=== PATIENT | female | born 1965 | race Caucasian/White ===

== ENCOUNTER 2022-05-19 08:41 | Day surgery (SDC) | payer OTHER, SELFPAY ==
[2022-05-19 09:25] VITALS: BP 155/80; PULSE 77; RESP 16; TEMP 36.6; O2SAT 96
[2022-05-19] MEDS: Tropicam./Phenyleph. (1/2.5%) 5 ML BTL OD ×3 (09:34→09:44)
--- NOTE | 2022-05-19 10:02 | ANES.PREOP_ITS ---
General Info Date of Service Date Performed: 05/19/22 Height: 5 ft 2 in Weight: 88.3 kg Body Mass Index (BMI): 35.6 Surgical Procedure: Operation Date: 05/19/22 11:40 Proposed Procedure Side Surgeon p Cataract Extraction with IOL Implant Right Rogelio Barreto MD Meds Allergies and Home Medications Allergies Allergy/AdvReac Type Severity Reaction Status Date / Time morphine Allergy Intermediate Itching Verified 05/19/22 09:24 cortisone AdvReac Intermediate Hot Verified 05/19/22 09:28 flashes, HTN, insomnia Home Medication Medication Instructions Recorded atorvastatin 10 mg tablet 1 tab PO DAILY 05/16/22 cholecalciferol (vitamin D3) 25 25 mcg PO DAILY 05/16/22 mcg (1,000 unit) tablet (Vitamin D3) diclofenac sodium 1 % topical gel 1 applic topical HS 05/16/22 efinaconazole 10 % topical 1 applic topical DIRECTED 05/16/22 solution with applicator ([employer] [place]) levalbuterol tartrate 45 2 inh inhalation QID PRN 05/16/22 mcg/actuation aerosol inhaler omeprazole 40 mg capsule,delayed 40 mg PO HS 05/16/22 release triamcinolone acetonide 0.1 % 1 applic topical BID PRN 05/16/22 topical ointment valacyclovir 1 gram tablet 1 tab PO DAILY PRN 05/16/22 cider 2 tab PO DAILY 05/18/22 vhlaajj-Po-kwqkddsebxjvqkyu-tea 500 mg-100 mcg-300 mg-60 mg tab (Apple Cider Vinegar Plus) Current Visit Medications: Current Medications Generic Name Dose Route Start Last Admin Trade Name Freq PRN Reason Stop Dose Admin Acetaminophen 1,000 mg 05/19/22 06:00 Acetaminophen 500 Mg Tab PO Q4H PRN PRN Miscellaneous Medication 0 ml 05/19/22 06:00 Prednisolone 1%, Moxifloxacin 0.5%, Nepafenac 0.1% 5ml Btl OD DIRECTED [facility] Miscellaneous Medication 0 ml 05/19/22 06:00 05/19/22 09:44 Tropicam./Phenyleph. (1/2.5%) 5 Ml Btl OD 1 drp DIRECTED [facility] Administration Tetracaine HCl 0 ml 05/19/22 06:00 Tetracaine 0.5% 4 Ml Btl OD DIRECTED [facility] Medical History Medical History (Updated 05/19/22 @ 09:22 by Juan David Martell) Acute bronchitis Difficulty breathing Pt gets SOBOE, but is able to lay flat Elevated blood pressure reading without diagnosis of hypertension GERD (gastroesophageal reflux disease) History of herpes zoster HLD (hyperlipidemia) Hyperglycemia Insomnia Knee pain Lump in lower inner quadrant of left breast Obesity Post-menopausal bleeding 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 Unilateral partial vocal cord paralysis Vitamin D deficiency Surgical History Surgical History (Updated 05/19/22 @ 09:23 by Juan David Martell) History of thoracic teratoma Hx of appendectomy Hx of tubal ligation Tobacco Smoking/Tobacco Use Status: Never Alcohol Alcohol Intake: never Substance Use Substance use: Never Substance use type: does not use Vital Signs and Lab Results Vital Signs Most Recent Vital Signs in EMR: Most Recent Vital Signs Temp Pulse Resp BP Pulse Ox 36.6 C 77 16 155/80 H 96 05/19/22 09:25 05/19/22 09:25 05/19/22 09:25 05/19/22 09:25 05/19/22 09:25 Lab Results Blood Type / Crossmatch: No Data to Display Complete Blood Count: No Data to Display Complete Metabolic Panel: No Data to Display Liver Function Panel: No Data to Display Coagulation Panel: No Data to Display Cardiac Panel: No Data to Display Arterial Blood Gas: No Data to Display Venous Blood Gas: No Data to Display Pancreas Panel: No Data to Display Thyroid Panel: No Data to Display Infectious Disease: No Data to Display Blood Cultures: No Data to Display Toxicology Panel: No Data to Display Anesthesia Assessment and Plan Anesthesia History Personal History: No History of Anesthesia Complications Family History: No Family History of Anesthesia Complications Exercise Tolerance Exercise Tolerance: Metabolic Equivalents<4 (LAFLEUR) Pertinent Negatives Pertinent Negatives: No Symptoms of GERD and No Major Cardiovascular Symptoms or Complaints Cardiac & Pulmonary Exam Cardiac Exam: Normal S1/S2 Heart Sounds Pulmonary Exam: Clear Bilateral Breath Sounds Cardiac and Pulmonary Comment:: Paralyzed vocal cord left Left diaphragm hemiparesis Implantable Cardiac Device Does patient have a Pacemaker or an ICD?: No Airway Exam Known Difficult Airway: No Mallampati Class: 2 Mouth Opening: Normal (> 3cm) Thyromental Distance: Greater than 3 cm Neck Range of Motion: Full ROM Neck Circumference: Normal Teeth Condition: Normal Dentition ASA Classification ASA Score: ASA 3 Emergency Case?: No NPO Status NPO Status: NPO Clears >2 hours, Solids >8 hours Anesthesia Plan Resuscitation Status: Full Code Anesthesia Technique: MAC Anesthesia Airway Planned: Natural Airway Pain Management: Intrathecal Analgesia Monitors Used: Standard Monitors
[2022-05-19 10:15] VITALS: BMI 35.6
[2022-05-19] MEDS: Povidone-Iodine Ophth 30 ML BTL (10:28)
[2022-05-19] MEDS: Tetracaine 0.5% 4 ML BTL OD (10:28)
[2022-05-19] MEDS: Lidocaine 2% Jelly 6 ML SYR (10:28)
[2022-05-19] MEDS: Balanced Salt Soln.-PLUS 500 ML BAG (10:29)
[2022-05-19 10:49] VITALS: BP 153/80; PULSE 73; RESP 16; TEMP 36.6; O2SAT 98
--- NOTE | 2022-05-19 10:50 | W.PM.DSUDISC ---
Discharge Plan Disposition Patient Disposition: HOME Condition: Good Discharge Details Attending Provider: Rogelio Barreto Primary Care Provider: Servando Tinoco [place] Meds and New Rx's Prescriptions: No Action atorvastatin 10 mg tablet 1 tab PO DAILY Label Comments: TAKE 1 TABLET BY MOUTH EVERY DAY valacyclovir 1 gram tablet 1 tab PO DAILY PRN Label Comments: TAKE 1 TABLET BY MOUTH DAILY NEEDED FOR COLD SORES omeprazole 40 mg Capsule,Delayed Release(Dr/Ec) 40 mg PO HS triamcinolone acetonide 0.1 % ointment 1 applic TOPICAL BID PRN Label Comments: APPLY ON THE SKIN NEEDED TWICE A DAY levalbuterol tartrate 45 mcg/actuation HFA aerosol inhaler 2 inh INHALATION QID PRN Label Comments: INHALE 2 PUFFS 4 TIMES DAILY NEEDED cholecalciferol (vitamin D3) [Vitamin D3] 25 mcg (1,000 unit) Tablet 25 mcg PO DAILY diclofenac sodium [Voltaren] 1 % Gel 1 applic TOPICAL HS Jublia 10 % Solution With Applicator 1 applic TOPICAL DIRECTED Apple Cider Vinegar Plus [id number] [id number]-mg Tablet 2 tab PO DAILY Discharge Instructions Stand Alone Forms: Post-op Topical Cataract, Susan Colon (DSU) Discharge Orders Discharge Orders: Discharge Order (Routine); Ordered 05/19/22 Ordered By: Rogelio Barreto DS: Diagnosis Discharge Diagnosis (1) Cortical cataract of right eye: Status: Resolved (2) Posterior subcapsular age-related cataract, right eye: Status: Resolved
--- NOTE | 2022-05-19 10:51 | W.PM.OP ---
Date of service: 05/19/22 Time of Service: 10:51 Operative Note Operative Note DATE OF PROCEDURE: 05/19/22 PRE-OP DIAGNOSIS: Cortical/posterior subcapsular cataract right eye POST-OP DIAGNOSIS: same PROCEDURE: Cataract extraction using phacoemulsification with intraocular lens implant, right eye SURGEON: Rogelio Barreto ANESTHESIA TYPE: Local By Surgeon and MAC Refer to Anesthesia Record ESTIMATED BLOOD LOSS: 0 PATHOLOGY: none sent COMPLICATIONS: None Patient was transported to: same day Patient's condition: stable Implants: Nile & Nile/JENIFER Tecnis [id number] Indications: Progressive visual loss due to cataract, right eye Procedure Description: CATARACT SURGERY OPERATIVE REPORT PREOPERATIVE DIAGNOSIS: 1. Cortical/posterior subcapsular cataract, right eye POSTOPERATIVE DIAGNOSIS: Same OPERATION: 1. Cataract extraction using phacoemulsification with posterior chamber intraocular lens implant, right eye. IOL: IOL Explosive Operator Grenade/Model: Nile & Nile / JENIFER Tecnis [id number] IOL Power: + 17.0 diopters IOL Serial Number: [id number] Optic Diameter: 6.0mm Haptic/Overall Diameter: 13.0mm PHACO INFO: Geraldo Honeyurion Vision System with OZil and Active Fluidics Cumulative Dispersed Energy (CDE): 3.12 seconds SURGEON: Rogelio Barreto MD, DAISY ANESTHESIA: Monitored Anesthesia Care (MAC), with local sub-tenon's anesthetic infiltration COMPLICATIONS: None SPECIMENS: None INDICATIONS FOR PROCEDURE: The patient is a 57-year-old lady with history of diminished visual acuity in her right eye secondary to the development of nuclear and cortical cataract. She is significantly symptomatic that she desired cataract surgery and attempt to improve and maximize her vision. PROCEDURE: The correct surgical eye was identified and marked as the right eye and the pupil was dilated in the preoperative area using mydriatics and cycloplegics. The dilated pupil size was 7.0mm. The patient elected to proceed without oral sedation. The patient was brought to the operating room where cardiopulmonary monitoring was instituted and surgical time-out was performed, confirming the correct operative eye and IOL power. Topical anesthesia was administered and ophthalmic povidone-iodine 5% was instilled into the conjunctival fornices. Lidocaine gel was applied to the cornea and the jose-ocular area was prepped with Betadine 10% solution and draped in the usual sterile fashion for intraocular surgery, including an aperture drape. A Tegaderm transparent film dressing was cut in half and used to cover the lashes and lid margins. Care was taken to sequester the lashes and lid margins under the Tegaderm dressing. A lid speculum was placed between the lids of the operative eye and the Geraldo LuxOR Revalia operating microscope was maneuvered into position. Gordon scissors were then used to make a conjunctival buttonhole approximately 6mm posterior to the limbus in the inferonasal quadrant. Blunt dissection was carried out to expose bare sclera, and a blunt-tipped sub-tenon?s anesthesia cannula was introduced and passed posteriorly along the globe where non-preserved plain lidocaine was injected into posterior sub-Tenon?s space. A sideport knife was used to make a paracentesis port inferotemporally. Intraocular phenylephrine/lidocaine was injected into the anterior chamber. The anterior chamber was filled with viscoelastic. A keratome knife was used to construct a 2-plane near-clear corneal tunnel extending 2.0mm into clear cornea superiortemporally. A flap was raised on the anterior capsule and capsulorhexis forceps were used to complete a continuous curvilinear capsulorhexis of 5.5 mm. Balanced salt solution was then used to perform cortical cleaving hydrodissection and nuclear hydrodelineation until the lens could be freely rotated within the capsular bag. The lens nucleus was then disassembled and removed within the capsular bag and iris plane using phacoemulsification. Residual cortical material was removed using the I/A handpiece. The posterior capsule was carefully polished to remove as much residual lens epithelial cells as safely possible. The capsular bag was then inflated and the anterior chamber deepened with viscoelastic. The lens implant described above was inserted into the capsular bag using the JENIFER [place] Injector. A Kuglen hook was used to dial the IOL into position. Residual viscoelastic was then removed first from posterior to the IOL, then from the anterior chamber using the I/A handpiece. The lens implant was noted to center nicely within the capsular bag. The incisions were stromally hydrated, and the anterior chamber was reformed using BSS. Then 0.5cc of moxifloxacin 1.0mg/ml were injected into the capsular bag and anterior chamber. The incisions were checked with a Weck spear and found to be secure. Several drops of ophthalmic povidone-iodine 5% were then applied to the eye followed by two drops of Imprimis combination prednisolone/moxifloxacin/nepafenac solution. The drapes were removed and a clear plastic protective eye shield was placed over the eye. The patient was then returned to Same Day Surgery in stable condition.
--- NOTE | 2022-05-19 11:03 | W.ANESPOSTOP ---
Postoperative Evaluation Date, Time and Location Date Performed: 05/19/22 Time Performed: 10:52 Patient Location: Day Surgery Unit Vital Signs Most Recent Imported Vital Signs: Most Recent Vital Signs Temp Pulse Resp BP Pulse Ox 36.6 C 73 16 153/80 H 98 05/19/22 10:49 05/19/22 10:49 05/19/22 10:49 05/19/22 10:49 05/19/22 10:49 Pain Score Most Recent Pain Score: Most Recent Pain Score Pain Level 0 05/19/22 10:49 Assessment Mental Status: Awake (Alert & Oriented to Patient Baseline) Airway and Respiratory Function: Patent airway with normal (patient baseline) respiratory exam Cardiovascular Function: Hemodynamically Stable Hydration Status: Adequately Hydrated Nausea & Vomiting: No Nausea or Vomiting Pain: Pt. Denies Any Pain Peripheral Nerve Block: Patient did not receive a nerve block
== END 2022-05-19 11:04 | disposition home or self-care (01) ==
LOC: SUR 08:41
PROVIDERS: PCP Internal Medicine; Visit Provider Ophthalmology
PROC: (CPT 66984; principal; 2022-05-19 11:30)
DX: H25.041 Posterior subcapsular polar age-related cataract, right eye (principal); R73.9 Hyperglycemia, unspecified; E55.9 Vitamin D deficiency, unspecified
CPT/HCPCS: 66984; V2632

== ENCOUNTER 2022-06-02 08:09 | Day surgery (SDC) | payer OTHER, SELFPAY ==
--- NOTE | 2022-06-02 08:25 | ANES.PREOP_ITS ---
General Info Date of Service Date Performed: 06/02/22 Height: 5 ft 2 in Weight: 88.3 kg Body Mass Index (BMI): 35.6 Surgical Procedure: Operation Date: 06/02/22 10:40 Proposed Procedure Side Surgeon p Cataract Extraction with IOL Implant Left Rogelio Barreto MD Meds Allergies and Home Medications Allergies Allergy/AdvReac Type Severity Reaction Status Date / Time morphine Allergy Intermediate Itching Verified 06/02/22 08:26 cortisone AdvReac Intermediate Hot Verified 06/02/22 08:26 flashes, HTN, insomnia Home Medication Medication Instructions Recorded atorvastatin 10 mg tablet 1 tab PO DAILY 05/16/22 cholecalciferol (vitamin D3) 25 25 mcg PO DAILY 05/16/22 mcg (1,000 unit) tablet (Vitamin D3) diclofenac sodium 1 % topical gel 1 applic topical HS 05/16/22 efinaconazole 10 % topical 1 applic topical DIRECTED 05/16/22 solution with applicator (Jublia) levalbuterol tartrate 45 2 inh inhalation QID PRN 05/16/22 mcg/actuation aerosol inhaler omeprazole 40 mg capsule,delayed 40 mg PO HS 05/16/22 release triamcinolone acetonide 0.1 % 1 applic topical BID PRN 05/16/22 topical ointment valacyclovir 1 gram tablet 1 tab PO DAILY PRN 05/16/22 cider 2 tab PO DAILY 05/18/22 hvoeaib-Ea-ahwpravdosbztlab-tea 500 mg-100 mcg-300 mg-60 mg tab (Apple Cider Vinegar Plus) Current Visit Medications: Current Medications Generic Name Dose Route Start Last Admin Trade Name Freq PRN Reason Stop Dose Admin Acetaminophen 1,000 mg 06/02/22 06:00 Acetaminophen 500 Mg Tab PO Q4H PRN PRN Miscellaneous Medication 0 ml 06/02/22 06:00 Prednisolone 1%, Moxifloxacin 0.5%, Nepafenac 0.1% 5ml Btl OS DIRECTED [facility] Miscellaneous Medication 0 ml 06/02/22 06:00 Tropicam./Phenyleph. (1/2.5%) 5 Ml Btl OS DIRECTED [facility] Tetracaine HCl 0 ml 06/02/22 06:00 Tetracaine 0.5% 4 Ml Btl OS DIRECTED [facility] PFSH Active Problems Active Problems: Problem Status Onset Code Posterior subcapsular age-related cataract, right eye H25.041 Cortical cataract of right eye H26.9 Medical History Medical History Acute bronchitis Difficulty breathing Pt gets SOBOE, but is able to lay flat Elevated blood pressure reading without diagnosis of hypertension GERD (gastroesophageal reflux disease) History of herpes zoster HLD (hyperlipidemia) Hyperglycemia Insomnia Knee pain Lump in lower inner quadrant of left breast Obesity Post-menopausal bleeding 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 Unilateral partial vocal cord paralysis Vitamin D deficiency Surgical History Surgical History History of thoracic teratoma Hx of appendectomy Hx of tubal ligation Tobacco Smoking/Tobacco Use Status: Never Alcohol Alcohol Intake: never Substance Use Substance use: Never Substance use type: does not use Vital Signs and Lab Results Lab Results Blood Type / Crossmatch: No Data to Display Complete Blood Count: No Data to Display Complete Metabolic Panel: No Data to Display Liver Function Panel: No Data to Display Coagulation Panel: No Data to Display Cardiac Panel: No Data to Display Arterial Blood Gas: No Data to Display Venous Blood Gas: No Data to Display Pancreas Panel: No Data to Display Thyroid Panel: No Data to Display Infectious Disease: No Data to Display Blood Cultures: No Data to Display Toxicology Panel: No Data to Display Anesthesia Assessment and Plan Anesthesia History Personal History: No History of Anesthesia Complications Family History: No Family History of Anesthesia Complications Exercise Tolerance Exercise Tolerance: Metabolic Equivalents<4 (LAFLEUR) Cardiac & Pulmonary Exam Cardiac Exam: Normal S1/S2 Heart Sounds Pulmonary Exam: Clear Bilateral Breath Sounds Implantable Cardiac Device Does patient have a Pacemaker or an ICD?: No Airway Exam Known Difficult Airway: No Mallampati Class: 2 Mouth Opening: Normal (> 3cm) Thyromental Distance: Greater than 3 cm Neck Range of Motion: Full ROM Neck Circumference: Normal Teeth Condition: Normal Dentition ASA Classification ASA Score: ASA 2 Emergency Case?: No NPO Status NPO Status: NPO Clears >2 hours, Solids >8 hours Anesthesia Plan Resuscitation Status: Full Code Anesthesia Technique: MAC Anesthesia Airway Planned: Natural Airway Monitors Used: Standard Monitors
[2022-06-02] MEDS: Tropicam./Phenyleph. (1/2.5%) 5 ML BTL OS ×3 (08:31→08:43)
[2022-06-02 08:32] VITALS: BP 158/78; PULSE 70; RESP 18; TEMP 36.8; O2SAT 96
[2022-06-02 08:48] VITALS: BMI 35.6
--- NOTE | 2022-06-02 09:00 | W.ANESPOSTOP ---
Postoperative Evaluation Date, Time and Location Date Performed: 06/02/22 Time Performed: 09:01 Patient Location: Day Surgery Unit Vital Signs Most Recent Imported Vital Signs: Most Recent Vital Signs Temp Pulse Resp BP Pulse Ox 36.8 C 70 18 158/78 H 96 06/02/22 08:32 06/02/22 08:32 06/02/22 08:32 06/02/22 08:32 06/02/22 08:32 Most Recent Manually Entered Vital Signs: Adult Blood Pressure: 119/75 Heart Rate: 80 Respirations: 16 Oxygen Saturation (%): 96 Temperature (C): 36.5 C Pain Score (0-10 Scale): 0 Pain Score Most Recent Pain Score: Most Recent Pain Score Pain Level 0 06/02/22 08:32 Assessment Mental Status: Awake (Alert & Oriented to Patient Baseline) Airway and Respiratory Function: Patent airway with normal (patient baseline) respiratory exam Cardiovascular Function: Hemodynamically Stable Hydration Status: Adequately Hydrated Nausea & Vomiting: No Nausea or Vomiting Pain: Pt. Denies Any Pain Peripheral Nerve Block: Patient did not receive a nerve block
[2022-06-02 09:04] VITALS: BP 119/75; PULSE 80; RESP 16; TEMPC 36.5; O2SAT 96
[2022-06-02] MEDS: Lidocaine 2% Jelly 6 ML SYR (09:37)
[2022-06-02] MEDS: Tetracaine 0.5% 4 ML BTL OS (09:38)
[2022-06-02] MEDS: Povidone-Iodine Ophth 30 ML BTL (09:38)
[2022-06-02] MEDS: Balanced Salt Soln.-PLUS 500 ML BAG (09:50)
--- NOTE | 2022-06-02 10:04 | W.PM.DSUDISC ---
Discharge Plan Disposition Patient Disposition: HOME Condition: Good Discharge Details Attending Provider: Rogelio Barreto Primary Care Provider: Servando Tinoco [place] Meds and New Rx's Prescriptions: No Action atorvastatin 10 mg tablet 1 tab PO DAILY Label Comments: TAKE 1 TABLET BY MOUTH EVERY DAY valacyclovir 1 gram tablet 1 tab PO DAILY PRN Label Comments: TAKE 1 TABLET BY MOUTH DAILY NEEDED FOR COLD SORES omeprazole 40 mg Capsule,Delayed Release(Dr/Ec) 40 mg PO HS triamcinolone acetonide 0.1 % ointment 1 applic TOPICAL BID PRN Label Comments: APPLY ON THE SKIN NEEDED TWICE A DAY levalbuterol tartrate 45 mcg/actuation HFA aerosol inhaler 2 inh INHALATION QID PRN Label Comments: INHALE 2 PUFFS 4 TIMES DAILY NEEDED cholecalciferol (vitamin D3) [Vitamin D3] 25 mcg (1,000 unit) Tablet 25 mcg PO DAILY diclofenac sodium [Voltaren] 1 % Gel 1 applic TOPICAL HS Jublia 10 % Solution With Applicator 1 applic TOPICAL DIRECTED Apple Cider Vinegar Plus [id number] [id number]-mg Tablet 2 tab PO DAILY Discharge Instructions Stand Alone Forms: Post-op Topical Cataract, Susan Colon ([facility]U) Discharge Orders Discharge Orders: Discharge Order (Routine); Ordered 06/02/22 Ordered By: Rogelio Barreto DS: Diagnosis Discharge Diagnosis (1) Posterior subcapsular age-related cataract of left eye: Status: Resolved (2) Cortical cataract of left eye: Status: Resolved
[2022-06-02 10:05] VITALS: BP 148/74; PULSE 76; RESP 16; TEMP 36.3; O2SAT 97
--- NOTE | 2022-06-02 10:05 | ROE_ITS ---
Date of service: 06/02/22 Time of Service: 10:05 Operative Note Operative Note DATE OF PROCEDURE: 06/02/22 PRE-OP DIAGNOSIS: Nuclear/posterior subcapsular cataract, left eye POST-OP DIAGNOSIS: same PROCEDURE: Cataract extraction using phacoemulsification with intraocular lens implant, left eye SURGEON: Rogelio Barreto ANESTHESIA TYPE: Local By Surgeon and MAC Refer to Anesthesia Record PATHOLOGY: none sent COMPLICATIONS: None Patient was transported to: same day Patient's condition: stable Implants: Nile and Nile / [employer] Tecnis Eyhance DIB00 Indications: Progressive decreased vision due to cataract, left eye Procedure Description: CATARACT SURGERY OPERATIVE REPORT PREOPERATIVE DIAGNOSIS: 1. Cortical/posterior subcapsular cataract, left eye POSTOPERATIVE DIAGNOSIS: Same OPERATION: 1. Cataract extraction using phacoemulsification with posterior chamber intraocular lens implant, left eye. IOL: IOL Traffic Administrator/Model: Nile & Nile / JENIFER Tecnis Eyhance DIB00 IOL Power: + 19.5 diopters IOL Serial Number: [id number] Optic Diameter: 6.0 mm Haptic/Overall Diameter: 13.0 mm PHACO INFO: Geraldo Haha Pincheurion Vision System with OZil and Active Fluidics Cumulative Dispersed Energy (CDE): 1.45 seconds SURGEON: Rogelio Barreto MD, DAISY ANESTHESIA: Monitored A [facility] (MAC), with local sub-tenon's anesthetic infiltration COMPLICATIONS: None SPECIMENS: None INDICATIONS FOR PROCEDURE: The patient is a 57-year-old lady with history of diminished visual acuity in both eyes secondary to the development of bilateral cortical/posterior subcapsular cataract. She has a history of myopia. She underwent cataract surgery in the right eye with correction for distance, and she is now better than 20/20 uncorrected in the right eye. She desires to remain myopic in the left eye so she has some degree of monovision. She has been tolerating monovision well since having her right eye done. Postoperative refractive target is -1.50 diopters with the Tecnis Eyhance implant. PROCEDURE: The correct surgical eye was identified and marked as the left eye and the pupil was dilated in the preoperative area using mydriatics and cycloplegics. The dilated pupil size was 7.0 mm. The patient elected to proceed without oral sedation. The patient was brought to the operating room where cardiopulmonary monitoring was instituted and surgical time-out was performed, confirming the correct operative eye and IOL power. Topical anesthesia was administered and ophthalmic povidone-iodine 5% was instilled into the conjunctival fornices. Lidocaine gel was applied to the cornea and the jose-ocular area was prepped with Betadine 10% solution and draped in the usual sterile fashion for intraocular surgery, including an aperture drape. A Tegaderm transparent film dressing was cut in half and used to cover the lashes and lid margins. Care was taken to sequester the lashes and lid margins under the Tegaderm dressing. A lid speculum was placed between the lids of the operative eye and the Geraldo LuxOR Revalia operating microscope was maneuvered into position. Gordon scissors were then used to make a conjunctival buttonhole approximately 6mm posterior to the limbus in the inferonasal quadrant. Blunt dissection was carried out to expose bare sclera, and a blunt-tipped sub-tenon?s anesthesia cannula was introduced and passed posteriorly along the globe where non- preserved plain lidocaine was injected into posterior sub-Tenon?s space. A sideport knife was used to make a paracentesis port superiorly/superiortemporally. Intraocular phenylephrine/lidocaine was injected int the anterior chamber.. The anterior chamber was filled with viscoelastic. A keratome knife was used to construct a 2-plane near-clear corneal tunnel extending 2.0mm into clear cornea temporally. A flap was raised on the anterior capsule and capsulorhexis forceps were used to complete a continuous curvilinear capsulorhexis of []mm. Balanced salt solution was then used to perform cortical cleaving hydrodissection and nuclear hydrodelineation until the lens could be freely rotated within the capsular bag. The lens nucleus was then disassembled and removed within the capsular bag and iris plane using phacoemulsification. Residual cortical material was removed using the 45-degree angled silicone I/A tip with 0.3mm port. The posterior capsule was carefully polished to remove as much residual lens epithelial cells as safely possible. The capsular bag was then inflated and the anterior chamber deepened with viscoelastic. The lens implant described above was inserted into the capsular bag using the Nile & Nile Simplicity preloaded injector.. A Kuglen hook was used to dial the IOL into position. Residual viscoelastic was then removed first from posterior to the IOL, then from the anterior chamber using the I/A handpiece. The lens implant was noted to center nicely within the capsular bag. The incisions were stromally hydrated, and the anterior chamber was reformed using BSS. Then 0.5cc of moxifloxacin 1.0mg/ml were injected into the capsular bag and anterior chamber. The incisions were checked with a Weck spear and found to be secure. Several drops of ophthalmic povidone-iodine 5% were then applied to the eye followed by two drops of Imprimis combination prednisolone/moxifloxacin/nepafenac solution. The drapes were removed and a clear plastic protective eye shield was placed over the eye. The patient was then returned to Same Day Surgery in stable condition.
--- NOTE | 2022-06-02 10:33 | W.ANESPOSTOP ---
Postoperative Evaluation Date, Time and Location Date Performed: 06/02/22 Time Performed: 10:15 Patient Location: Day Surgery Unit Vital Signs Most Recent Imported Vital Signs: Most Recent Vital Signs Temp Pulse Resp BP Pulse Ox 36.3 C L 76 16 148/74 H 97 06/02/22 10:05 06/02/22 10:05 06/02/22 10:05 06/02/22 10:05 06/02/22 10:05 Most Recent Vital Signs Temp Pulse Resp BP Pulse Ox 36.8 C 70 18 158/78 H 96 06/02/22 08:32 06/02/22 08:32 06/02/22 08:32 06/02/22 08:32 06/02/22 08:32 Pain Score Most Recent Pain Score: Most Recent Pain Score Pain Level 0 06/02/22 10:05 Assessment Mental Status: Awake (Alert & Oriented to Patient Baseline) Airway and Respiratory Function: Patent airway with normal (patient baseline) respiratory exam Cardiovascular Function: Hemodynamically Stable Hydration Status: Adequately Hydrated Nausea & Vomiting: No Nausea or Vomiting Pain: Pt. Denies Any Pain Peripheral Nerve Block: Patient did not receive a nerve block
== END 2022-06-02 10:26 | disposition home or self-care (01) ==
PROVIDERS: PCP Internal Medicine; Visit Provider Ophthalmology
PROC: (CPT 66984; principal; 2022-06-02 10:30)
DX: H25.042 Posterior subcapsular polar age-related cataract, left eye (principal); K21.9 Gastro-esophageal reflux disease without esophagitis; E78.5 Hyperlipidemia, unspecified; E55.9 Vitamin D deficiency, unspecified; R73.9 Hyperglycemia, unspecified
CPT/HCPCS: 66984; V2632